=== PATIENT | male | born 1970 | race Caucasian/White ===

== ENCOUNTER 2023-09-14 04:01 | Outpatient (CLI) | payer BC, SELFPAY ==
[2023-09-14 09:03] LABS: Abs Immature Grans 0.02 10^3/uL (0.0-0.06); Absolute Basophil Count 0.06 10^3/uL (0.0-0.2); Absolute Eosinophil Count 0.11 10^3/uL (0.0-0.7); Absolute Lymphocyte Count 1.88 10^3/uL (1.2-3.4); Absolute Monocyte Count 0.66 10^3/uL (0.1-0.8); Absolute Neutrophil Count 4.78 10^3/uL (1.2-6.7); Basophils % 0.8; Eosinophils % 1.5; HCT 45.2 % (40.0-50.0); HGB 15.2 g/dL (13.5-17.5); Immature Grans % 0.3; MCH 28.6 pg (27.0-33.0); MCHC 33.6 % (32.0-36.0); MCV 85 fL (80-95); MPV 9.3 fL (8.0-11.0); Monocytes % 8.8; Neutrophils % 63.6; Platelet Count 191 10^3/uL (130-400); RBC 5.31 10^6/uL (4.36-5.78); RDW 12.4 % (11.8-14.1); RDW-SD 38.5 fL; WBC 7.51 10^3/uL (4.4-10.8)
[2023-09-14 10:08] LABS: ALT 28 U/L (16-63); AST 21 U/L (15-37); Albumin 3.9 g/dL (3.4-5.0); Alkaline Phosphatase 87 U/L (46-116); BUN 12 mg/dL (7-18); Bilirubin, Total 0.5 mg/dL (0.2-1.0); CREATININE 0.9 mg/dL (0.70-1.30); Calcium 9.2 mg/dL (8.5-10.1); Calculated LDL 159 mg/dL (<100); Chloride 106 mmol/L (98-107); Cholesterol 223 mg/dL (<200); Estimated GFR 101.49 (mL/min/1.73m2); Glucose 95 mg/dL (74-106); HDL Cholesterol 49 mg/dL (40-60); Potassium 4.2 mmol/L (3.5-5.1); Sodium 145 mmol/L (136-145); Total Protein 7.4 g/dL (6.4-8.2); Triglyceride 76 mg/dL (<150)
[2023-09-19 18:03] LABS: Testosterone, Free 6.09 ng/dL (4.06-15.6); Testosterone, Total 227 ng/dL (240-950)
== END 2023-09-14 04:02 | disposition home or self-care (01) ==
LOC: LBO 04:01
PROVIDERS: Absent Provider Nurse Practitioner; PCP Nurse Practitioner; Referring Provider Nurse Practitioner; Visit Provider Nurse Practitioner
DX: Z13.220 Encounter for screening for lipoid disorders (principal); G47.30 Sleep apnea, unspecified; R41.840 Attention and concentration deficit; R68.82 Decreased libido
CPT/HCPCS: 36415; 80053; 80061; 84402; 84403; 84443; 85025

== ENCOUNTER 2023-09-15 08:52 | Outpatient (RCR) | payer BC, SELFPAY ==
--- NOTE | 2023-09-15 09:15 | HOLTER_ITS ---
APPROVED REPORT Conclusion This is a 48-hour Holter monitor Rhythm throughout was sinus with an average heart rate 88. Minimum was 61, maximum 147 There were occasional isolated atrial and ventricular ectopic beats There was no atrial fibrillation, no high-grade AV block, no pauses greater than 3 seconds Symptoms were reported which may have correlated with extrasystoles
== END 2023-09-29 23:59 | disposition home or self-care (01) ==
LOC: CARDOPNVT 08:52
PROVIDERS: PCP Nurse Practitioner; Visit Provider Internal Medicine Cardiovascular Disease
DX: R00.2 Palpitations (principal); R94.39 Abnormal result of other cardiovascular function study
CPT/HCPCS: 93225; 93226

== ENCOUNTER 2023-12-16 10:42 | Day surgery (SDC) | payer BC, SELFPAY ==
[2023-12-16 11:03] VITALS: BP 109/75; PULSE 57; RESP 16; TEMP 36.6; O2SAT 95
[2023-12-16] MEDS: Lactated Ringers 1,000 ML 80 ML IV (11:15)
--- NOTE | 2023-12-16 11:20 | W.ANESPRE ---
General Info Date of Service Date Performed: 12/16/23 Height: 5 ft 10.5 in Weight: 89.5 kg Body Mass Index (BMI): 27.8 Surgical Procedure: Operation Date: 12/16/23 11:35 Proposed Procedure Side Surgeon gianluca Vance, DO Meds Allergies and Home Medications Allergies Allergy/AdvReac Type Severity Reaction Status Date / Time Penicillins Allergy Intermediate unknown Verified 12/16/23 10:53 shellfish derived Allergy Intermediate unknown Verified 12/16/23 10:53 Home Medication Medication Instructions Recorded fluocinolone 0.01 % topical 1 applic topical BID PRN 09/01/23 solution triamcinolone acetonide 0.025 % 1 applic topical BID PRN 09/01/23 topical cream bisacodyl 5 mg tablet,delayed 5 mg PO ONCE #4 tabs 12/01/23 release (Dulcolax (bisacodyl)) polyethylene glycol 3350 17 17 g PO DAILY #238 grams 12/01/23 gram/dose oral powder guanfacine 2 mg tablet,extended 2 mg PO QPM #30 tabs 12/08/23 release 24 hr Current Visit Medications: Current Medications Generic Name Dose Route Start Last Admin Trade Name Freq PRN Reason Stop Dose Admin Hyoscyamine Sulfate 0.125 mg 12/16/23 06:24 Hyoscyamine 0.125 Mg Sl/Oral/Chew SL 01/15/24 06:23 DIRECTED PRN Ringer's Solution 1,000 mls @ 80 mls/hr 12/16/23 06:00 12/16/23 11:15 IV 01/14/24 23:59 80 mls/hr INFUSION SERGIO Administration IV Miscellaneous Supplies 1 each 12/16/23 06:00 Iv Access IV 01/14/24 23:59 DIRECTED SERGIO Ondansetron HCl 4 mg 12/16/23 06:24 Ondansetron 4 Mg/2 Ml Vial IVP 01/15/24 06:23 Q4H PRN PRN Nausea / Vomiting Sodium Chloride 0 ml 12/16/23 06:00 Normal Saline Flush 10 Ml Syr IV 01/14/24 23:59 PRN PRN Sodium Chloride 0 ml 12/16/23 06:00 Normal Saline 10 Ml Vial IJ 01/14/24 23:59 DIRECTED PRN Sterile Water 0 ml 12/16/23 06:00 Water,Injection,Sterile 10 Ml Vial IJ 01/14/24 23:59 DIRECTED PRN [facility] Active Problems Active Problems: Problem Status Onset Code Adult ADHD F90.9 Hyperlipidemia ~09/2023 E78.5 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 Depression F32.A Sleep apnea G47.30 Right ankle pain ~2017 M25.571 Medical History Medical History Attention and concentration deficit trial of Provigil 2022 Surgical History Surgical History H/O nasal septoplasty History of colonoscopy Tobacco Smoking/Tobacco Use Status: Former Tobacco Use Second hand exposure: Yes Alcohol Alcohol Intake: current Alcohol intake frequency: a few times a week Substance Use Substance use: Never Details: 1-2 adderall, more than 6 months ago Vital Signs and Lab Results Vital Signs Most Recent Vital Signs in EMR: Most Recent Vital Signs Temp Pulse Resp BP Pulse Ox 36.6 C 57 L 16 109/75 95 12/16/23 11:03 12/16/23 11:03 12/16/23 11:03 12/16/23 11:03 12/16/23 11:03 Lab Results Blood Type / Crossmatch: No Data to Display Complete Blood Count: No Data to Display Complete Metabolic Panel: No Data to Display Liver Function Panel: No Data to Display Coagulation Panel: No Data to Display Cardiac Panel: No Data to Display Arterial Blood Gas: No Data to Display Venous Blood Gas: No Data to Display Pancreas Panel: No Data to Display Thyroid Panel: No Data to Display Infectious Disease: No Data to Display Blood Cultures: No Data to Display Toxicology Panel: No Data to Display Anesthesia Assessment and Plan Anesthesia History Personal History: No History of Anesthesia Complications Family History: No Family History of Anesthesia Complications and Family History Unknown Exercise Tolerance Exercise Tolerance: Metabolic Equivalents>4 Pertinent Negatives Pertinent Negatives: No Symptoms of GERD, No Major Cardiovascular Symptoms or Complaints, No Major Pulmonary Symptoms or Complaints and No History of CVA/TIA Cardiac & Pulmonary Exam Cardiac Exam: Normal S1/S2 Heart Sounds Pulmonary Exam: Clear Bilateral Breath Sounds Implantable Cardiac Device Does patient have a Pacemaker or an ICD?: No Airway Exam Known Difficult Airway: No Mallampati Class: 2 Mouth Opening: Normal (> 3cm) Thyromental Distance: Greater than 3 cm Neck Range of Motion: Full ROM Neck Circumference: Normal Teeth Condition: Normal Dentition ASA Classification ASA Score: ASA 2 Emergency Case?: No NPO Status NPO Status: NPO Clears >2 hours, Solids >8 hours Anesthesia Plan Resuscitation Status: Full Code Anesthesia Technique: General Anesthesia Airway Planned: Natural Airway Monitors Used: Standard Monitors Preoperative Comments:: 53 y/o male with history of HLD, sleep apnea and ADHD presents for colonoscopy screening pre-op. Patient states that his last Colonoscopy was in 2020 and it was remarkable for a polyp.
[2023-12-16 11:46] VITALS: BMI 27.8
--- NOTE | 2023-12-16 12:50 | BOWEL_PTH ---
PATIENT: Ray Rodriguez LOC: [facility] U#:[id number] AGE/SX: 53/M ROOM: RE12/16/[address]: Josefina Vance : 1970 BED: DIS: 12/16/2023 SPEC #: [id number] RECD: 12/16/23 13:34 STATUS: TINO RE #: [id number] JUAN: 12/16/23 12:[address]: Josefina Vance DEPT: Surgical Specimen RECD BY: Catrina Nolan ENTERED: 12/16/23 13:34 SP TYPE: Bowel OTHR DR: Maryellen Arroyo APRN Tissues: 1 - BIOPSY BOWEL Procedures: GROSS AND MICRO LEVEL 4 Comments: [id number]
[2023-12-16 13:00] VITALS: BP 98/70; PULSE 59; RESP 14; TEMP 36.5; O2SAT 95
--- NOTE | 2023-12-16 13:03 | COLE_ITS ---
Date of service: 12/16/23 Time of Service: 13:03 Colonoscopy Report Date of procedure: 12/16/23 Pre-op diagnosis general: History of adenomatous polyps Post-op diagnosis procedure note: other (Polyp and diverticula) Surgeon: Josefina Vance Anesthesia Type: General:No Airway Estimated blood loss (mL): 1 Pathology: other Complications: None Disposition: same day Prep: Miralax/Dulcolax Retraction Time: 10 Procedure Description: After informed consent was obtained the patient was taken to the procedure room and placed in a left decubitous position. Monitors were applied and a time out was done. The patients name, date of , procedure, allergies to medications and metal in their body was reviewed. The patient was then sedated. Once sedated and comfortable a rectal exam was done. External exam was normal. Internal exam revealed a normal sphincter tone and no palpable masses. The prostate without masses The scope was then introduced and retrofelexed. No internal hemorrhoids were identified. The scope was then advanced to the cecum without difficulty. The TI and appendiceal orifice were identified. The scope was then slowly retracted over 10 minutes back into the rectum. Polyp were removed at 50 cm. It is a flat, 0.5 cm polyp that is removed with a cold biopsy forcep. All specimen is retrieved and no bleeding is noted. He has a few very small scattered diverticula within the sigmoid colon. There is no signs of active bleeding or infection. The mucosa is pink and healthy with a normal vascular pattern. The scope was removed and the patient was woken up and taken back to Same day surgery in stable condition. The patient tolerated the procedure well and there were no immediate complications. Follow up: The patient should follow up in 7 years, path pending, unless they develop changes in bowel habits or other new gastrointestinal complaints. [facility] Right Colon: 3 Left Colon: 3 Transverse Colon: 3 Total Score: 9
--- NOTE | 2023-12-16 13:06 | PDOC.DSDIS_ITS ---
Date of service: 12/16/23 Time of Service: 13:06 Discharge Plan Disposition Patient Disposition: Home Condition: Good Discharge Details Reason For Visit: Colon scope Attending Provider: Josefina Vance Primary Care Provider: Maryellen Arroyo Home Meds and New Rx's Prescriptions: Continued guanfacine 2 mg tablet extended release 24 hr 2 mg PO QPM Qty: 30 2RF fluocinolone 0.01 % solution 1 applic topical BID PRN triamcinolone acetonide 0.025 % cream 1 applic topical BID PRN Discontinued bisacodyl [Dulcolax (bisacodyl)] 5 mg tablet,delayed release (DR/EC) 5 mg PO ONCE Qty: 4 0RF polyethylene glycol 3350 17 gram/dose powder 17 g PO DAILY Qty: 238 0RF Discharge Instructions Additional Instructions: [facility] Colonoscopy Post- Op Instructions Instructions for Everyone who is given Anesthesia: For your safety, please do the following for the next twenty-four (24) hours: *Do Not operate a motor vehicle (car, truck, motorcycle, etc.) *Do Not drink alcoholic beverages or use any recreational drugs for the first 24 hours or while taking pain medications. The medications in your body may have a reaction that can be dangerous. *Do Not make any important decisions or sign any important papers. Findings: Diverticula-make sure you are moving your bowels on a regular basis and not straining to go to the bathroom. If you find you are some having some issues with constipation, then it is recommended you start a fiber supplement such as Metamucil. -Small polyp Follow up: My office will send you a letter in 3 to 4 weeks time with the results of the pathology and when we want you to repeat the colonoscopy, most likely 7 years time. 1. No lifting over 20 pounds or strenuous activity for the first 24 hours after your procedure. After 24 hours there are no restrictions on your activity but you may feel fatigued for a few days. 2. After you arrive home you may have a light meal and return to your normal diet as you can tolerate it without feeling sick to your stomach. 3. You may have a bloated, gaseous feeling in your belly (abdomen) after a colonoscopy. Passing gas and belching will help. Walking or lying down on your left side with your knees flexed may relieve the discomfort. Call the office at [phone] (Office) or [phone] (Hospital) right away if you notice any of the following: a.Vomiting of blood or ?coffee ground stools?. b.Rectal bleeding 1Tbsp, blood clots or continuous bleeding. c.Severe belly (abdominal) pain. d.A hard distended belly (abdomen) and an inability to pass gas. 4. Please don?t expect to have a normal BM (bowel movement) for 2-3 days after your procedure. 5. If there are questions regarding the findings of your procedure, please contact your doctor 6. If you are unable to contact your doctor with a problem, contact the hospital at [phone]. 7. Continue all your regular medications unless directed otherwise. I understand the above instructions and have no questions. Signature of Patient or Adult Escort Name of Responsible Adult Escort Signature of Nurse Date/Time Activity:: See above Diet:: See above Discharge Orders Discharge Orders: Discharge Order (Routine); Ordered 12/16/23 Ordered By: Josefina Vance DS: Diagnosis Discharge Diagnosis (1) Hyperlipidemia: Status: Acute (2) Sleep apnea: Status: Acute (3) Adenomatous polyps: Status: Acute Asessment and Plan: The patient is seen and examined after their colonoscopy.? The patient has been able to pass gas.? They are not having abdominal pain.? They have been able to tolerate liquids and a snack.? They do not have any nausea or vomiting.? They are not having any chest pain or shortness of breath.??? They are not having any rectal bleeding. Their vital signs have been stable-see nursing notes. We discussed findings during their colonoscopy, and any biopsies that were done/polyps that were removed. The patient will be sent a letter with any biopsy results, and when to repeat the colonoscopy.-see discharge instructions. Patient was given explicit instructions to follow-up regarding colonoscopy-refer to discharge instructions.? We reviewed resumption of medications. Patient verbalized understanding and discharged in stable and satisfactory condition- See nursing notes. (4) Diverticula of colon: Status: Acute (5) Adult ADHD: Status: Acute
[2023-12-16 13:29] VITALS: BP 107/71; PULSE 55; RESP 16; TEMP 36.6; O2SAT 98
--- NOTE | 2023-12-16 14:19 | W.ANESPOSTOP ---
Postoperative Evaluation Date, Time and Location Date Performed: 12/16/23 Time Performed: 13:48 Patient Location: Day Surgery Unit Vital Signs Most Recent Imported Vital Signs: Most Recent Vital Signs Temp Pulse Resp BP Pulse Ox 36.6 C 55 L 16 107/71 98 12/16/23 13:29 12/16/23 13:29 12/16/23 13:29 12/16/23 13:29 12/16/23 13:29 Pain Score Most Recent Pain Score: Most Recent Pain Score Pain Level 0 12/16/23 13:29 Assessment Mental Status: Awake (Alert & Oriented to Patient Baseline) Airway and Respiratory Function: Patent airway with normal (patient baseline) respiratory exam Cardiovascular Function: Hemodynamically Stable Hydration Status: Adequately Hydrated Nausea & Vomiting: No Nausea or Vomiting Pain: Pt. Denies Any Pain Peripheral Nerve Block: Patient did not receive a nerve block
== END 2023-12-16 14:24 | disposition home or self-care (01) ==
PROVIDERS: PCP Nurse Practitioner; Visit Provider Surgery
PROC: 0DJD8ZZ Inspection of Lower Intestinal Tract, Via Natural or Artificial Opening Endoscopic (ICD-10-PCS; CPT 45378; principal; 2023-12-16 11:30)
DX: E78.5 Hyperlipidemia, unspecified (principal); G47.30 Sleep apnea, unspecified; K57.30 Diverticulosis of large intestine without perforation or abscess without bleeding; Z12.11 Encounter for screening for malignant neoplasm of colon; D12.5 Benign neoplasm of sigmoid colon
CPT/HCPCS: 45380; 88305; J2704

== ENCOUNTER 2024-03-14 03:06 | Outpatient (CLI) | payer BC, SELFPAY ==
[2024-03-14 18:28] LABS: PSA, Screening 0.7 ng/mL (<=3.5)
[2024-03-18 16:59] LABS: Testosterone, Total 418 ng/dL (240-950)
== END 2024-03-14 03:07 | disposition home or self-care (01) ==
LOC: LBO 03:06
PROVIDERS: PCP Nurse Practitioner; Visit Provider Nurse Practitioner Gerontology
DX: E29.1 Testicular hypofunction (principal); R53.83 Other fatigue; R68.82 Decreased libido
CPT/HCPCS: 36415; 84153; 84403

== ENCOUNTER 2024-09-21 00:42 | Outpatient (CLI) | payer BC, SELFPAY ==
[2024-09-21 09:04] LABS: ALT 42 U/L (16-63); AST 26 U/L (15-37); Albumin 4.1 g/dL (3.4-5.0); Alkaline Phosphatase 102 U/L (46-116); Anion Gap 3.2 mmol/L (3-11); BUN 11 mg/dL (7-18); Bilirubin, Total 0.46 mg/dL (0.2-1.0); CO2 31.8 mmol/L (21.0-32.0); CREATININE 1.1 mg/dL (0.70-1.30); Calcium 9.4 mg/dL (8.5-10.1); Calculated LDL 135 mg/dL (<100); Chloride 106 mmol/L (98-107); Cholesterol 214 mg/dL (<200); Estimated GFR 79.28 (mL/min/1.73m2); Glucose 98 mg/dL (74-106); HDL Cholesterol 53 mg/dL (40-60); Potassium 4.4 mmol/L (3.5-5.1); Sodium 141 mmol/L (136-145); Total Protein 7.7 g/dL (6.4-8.2); Triglyceride 130 mg/dL (<150)
[2024-09-23 09:45] LABS: HIV-1/2 Ag & Ab Screen Negative (Negative)
[2024-09-24 10:54] LABS: Hepatitis C Ab w Rflx HCV PCR Negative (Negative)
== END 2024-09-21 00:43 | disposition home or self-care (01) ==
PROVIDERS: PCP Nurse Practitioner; Visit Provider Nurse Practitioner
DX: E78.5 Hyperlipidemia, unspecified (principal); Z11.59 Encounter for screening for other viral diseases
CPT/HCPCS: 36415; 80053; 80061; 86803; 87389